=== PATIENT | female | born 1980 | race Caucasian/White ===

== ENCOUNTER → 2021-12-04 15:42 | Outpatient (CLI) | payer OTHER, SELFPAY ==
[2021-12-04 18:46] LABS: COVID19 -Nasal RAPID Negative (Negative)
== END ==
PROVIDERS: Visit Provider Family Medicine Sleep Medicine
DX: Z20.822 Contact with and (suspected) exposure to COVID-19 (principal)
CPT/HCPCS: 87635; C9803

== ENCOUNTER 2021-12-06 07:14 | Day surgery (SDC) | payer OTHER, SELFPAY ==
[2021-12-05 07:59] VITALS: BMI 22.8
[2021-12-06] VITALS (12 sets, daily range): BP systolic 110–130; BP diastolic 60–91; PULSE 57–99; RESP 12–17; TEMP 36.6–37; O2SAT 90–100; BMI 22.8
[2021-12-06] MEDS: LACTATED RINGERS 1,000 ML 42 ML IV (08:18)
[2021-12-06] MEDS: ACETAMINOPHEN 325 MG TABLET 975 MG PO (08:18)
--- NOTE | 2021-12-06 08:29 | PM.PREOP ---
Pre-operative Note COVID-19 COVID-19 status: Negative Result date/Date tested (Pos, Neg/Pending): 12/04/21 Interval Note History & Physical reviewed/Exam performed by Physician: Yes Changes to H&P: Yes
[2021-12-06] MEDS: CELECOXIB 200 MG CAPSULE PO (08:34)
--- NOTE | 2021-12-06 08:51 | SUR.PREOP ---
Block start time [0841] . Monitoring initiated and maintained throughout procedure. Medication given by anesthesiologist. Patient remained stable throughout procedure, no adverse reactions noted. Block end time [0847].
[2021-12-06] MEDS: CEFAZOLIN 2 GM/20 ML SYRINGE IV (09:00)
--- NOTE | 2021-12-06 09:34 | SUR.OPER ---
Supine on padded OR bed, head on pillow, arms secured on padded arm boards at <90 degrees abduction, legs uncrossed, left leg draped into surgical field, hindged knee post on left side of bed, safety belt at abdomen. Directed and approved by surgical attending
[2021-12-06] MEDS: BUPIVACAINE 0.5% (PF) VIAL 30 ML INJ (10:16)
--- NOTE | 2021-12-06 10:56 | P.OP_ITS ---
Operative Date/Time/Diagnoses Date of procedure: 12/06/21 Time of procedure: 10:56 Pre-op diagnosis: Left knee anterior cruciate ligament rupture Post-op diagnosis: same Procedure & Clinicians Procedure: Left anterior cruciate ligament reconstruction with quadriceps autograft Same procedure as scheduled: Yes Indications: The patient is a 41-year-old active woman who injured her left knee while skiing. She has had symptoms of instability and her MRI has revealed an ACL rupture. We have discussed both operative and non operative treatment methods. She has elected to proceed with ACL reconstruction after discussion the risks benefits and alternatives. A quadriceps autograft was chosen due to her short stature. Risks discussed included but were not limited to: Failure to improve, stiffness, infection, nerve damage, deep venous thrombosis, pulmonary embolism, stroke, myocardial infarction, permanent paralysis, aspiration pneumonia and . Surgeon: Gian Curiel Plant Nursery Worker: Tiffanie Capone Yes if Unassisted: No Anesthesia Type: General, Peripheral nerve block and Local Operative Notes Findings: 1. Normal suprapatellar pouch 2. 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 Medial and lateral gutters normal 4. Medial compartment notable for intact cartilage and normal-appearing meniscus 5. Intercondylar notch notable for complete rupture of the anterior cruciate ligament off its femoral insertion and intact PCL. 6. Lateral compartment notable for grade 1 chondromalacia of the tibial plateau with softening and normal-appearing meniscus. 7. Normal posterolateral compartment 8. Normal posteromedial compartment. Closure Type: primary Specimen(s): none sent Prosthetic devices, grafts, tissues, transplants, or devices: Implants used in this procedure included tibial and femoral tight ropes for the quadriceps graft and a 14 mm tibial tight rope titanium button, these were manufactured by [employer]. In addition a backup fixation for the tibia of a 4.5 mm cortical Synthe[employer] large fragment screw with a washer was placed. Applied: implant(s) Estimated Blood Loss (mL): 50 Blood products transfused: none Tourniquet time (min): 53 Procedure in detail: The patient is seen in the preoperative area where she identified the left knee as the operative site. This was marked with my initials. She underwent the induction of an abductor canal block and then was taken to the operating room and placed on the operating room table in a supine position where she underwent induction with general anesthetic. Following adequate general anesthesia her knee was examined under anesthesia and a tourniquet placed around the proximal left thigh. The left leg was prepared from the toes to the tourniquet with ChloraPrep in the usual fashion and draped through sterile drapes. A superior medial portal was created for the outflow cannula and this was used to insufflate the knee with saline. A lateral portal was created for the arthroscope. Diagnostic arthroscopy ensued with the result given above. During diagnostic arthroscopy, a medial portal was created for the probe and other tools. At this point the arthroscope was temporarily withdrawn from the knee and the knee was elevated and exsanguinated with an Esmarch bandage and the tourniquet inflated to 250 mmHg. An approximately 7 cm incision was created above the patella in the midline and the central 9 mm of quadriceps tendon was harvested for a 9 mm wide by 7.5 cm long graft. This was taken to the back table for preparation into a graft by my financial planning assistant. I return to the operative field to close the defect in the quadriceps with a running 0 Vicryl suture. The arthroscope was then reinserted into the knee and the intercondylar notch debrided. The arthroscope was then placed in the medial portal and the [employer] FlipCutter device placed through the lateral portal to drill a retrograde socket in the femur. This was placed in the center of the ACL footprint. A passing suture was placed and brought out through the lateral portal. The arthroscope was then repositioned in the lateral portal and the tibial tunnel drilled over a guide pin in the center of the tibial footprint. Both tunnels were 10 mm in diameter. The passing suture was brought out through the tibial tunnel. The graft was then advanced through the tibial tunnel into the femoral socket. The femoral tight rope device deployed without difficulty. Fixation was confirmed by placing strong traction on the graft. The tight rope device was then used to deliver the graft into the femoral socket. The tibial button was then placed and the graft maximally tightened over the button. There appeared to be some ?play? in the button after tightening so I elected to back this up with a post fixation using a large fragment cortical screw and washer just distal to the tibial tunnel. The sutures from the graft were tied over the button and then brought down around the post and tied around the post as well. This provided good fixation and eliminated the Lalo's maneuver. The tourniquet was deflated for a total tourniquet time of 53 minutes. The graft harvest wound was closed with interrupted 3-0 Vicryl and a running 4-0 Monocryl. The portal sites were closed with 4-0 Monocryl. The tibial tunnel site was closed with interrupted 3-0 Vicryl and 4-0 Monocryl. Steri-Strips were applied. Local anesthetic was injected into the knee for postoperative pain control. Dressings of sterile 4x4s, sterile cast padding and an Erwin wrap were applied. The patient was then transported to the recovery room in good condition having tolerated the procedure well. Complications: none Post-operative Condition: stable Disposition: PACU Plan for aftercare: The patient will be maintained on a standard arthroscopic ACL reconstruction protocol. She will be allowed to weight bear as tolerated once she has had the block wear off and has been able to reestablish good quadriceps control. She will use crutches until then. She will be discharged later today. Prescriptions for oxycodone and Vistaril have been called into her pharmacy. Follow-up will be in my office in 2 weeks.
[2021-12-06] MEDS: fentaNYL 100 MCG/2 ML INJ IV ×3 (11:01→11:21)
[2021-12-06] MEDS: OXYCODONE IR 5 MG TABLET PO ×2 (11:12→12:18)
[2021-12-06] MEDS: hydrOXYzine pamoate 25 MG CAPSULE PO (11:13)
[2021-12-06] MEDS: MEPERIDINE 50 MG/ML INJ 25 MG IV (11:26)
--- NOTE | 2021-12-06 13:45 | SUR.PHASEII ---
12/[id number] report and patient . vss. csm good to left knee/foot. moving actively. wide awake and alert. denies feeling any tingling/numbness in left leg. Pt had abducter block this am. second pain pill given per request. 1230-Home instructions completed with patient. verbalized understanding. feels ready for discharge. vss. 1245-dressed. oob in w/chair. no changes with status. taking po fluids well. 1250-Escorted to car by w/chair with all belongings. dressing cdi to knee. to pick up attendant RX on way home.
--- NOTE | 2021-12-06 15:20 | SUR.PHASEII ---
12/06/21 1515-patient called in c/o difficulty with getting RX filled. Dr Curiel in OR, unable to address issue. GRISEL Kline here and addressed issue. new Rx ordered,cancelled prior RX for Oxycodone. Pharmacy called and will barrientos order to fill. patient called back and updated, RX to be ready by 1630 for pickup.
== END 2021-12-06 12:50 | disposition home or self-care (01) ==
PROVIDERS: PCP Acupuncturist; Referring Provider Orthopaedic Surgery; Visit Provider Orthopaedic Surgery
PROC: (CPT 29888; principal; 2021-12-06 08:45)
DX: S83.512A Sprain of anterior cruciate ligament of left knee, initial encounter (principal); Y93.23 Activity, snow (alpine) (downhill) skiing, snowboarding, sledding, tobogganing and snow tubing; W17.81XA Fall down embankment (hill), initial encounter; Y92.838 Other recreation area as the place of occurrence of the external cause
CPT/HCPCS: 27427; 64450; 81025; J0690; J2175; J2250; J2704; J3010

== ENCOUNTER → 2023-10-23 13:55 | Outpatient (CLI) | payer OTHER, SELFPAY ==
--- NOTE | 2023-10-23 13:57 | DI.RAD.S_ITS ---
PROCEDURE: XR LUMBAR SPINE MIN 4V INDICATIONS: LEG PAIN TECHNIQUE: 5 views of the lumbar spine were acquired, including bilateral oblique views. COMPARISON: None. FINDINGS: Bones: 5 nonrib-bearing vertebrae are present. There is normal bony alignment. No acute vertebral body compression fractures. No suspicious bony lesions. Multilevel spondylosis of the lumbar spine with associated facet arthropathy most pronounced at L4-5 and L5-S1. Soft tissues: Overlying bowel gas pattern is normal. No suspicious soft tissue calcifications. Oblique images: No pars defects. IMPRESSION: No acute bony abnormality. Multilevel spondylosis most pronounced at L4-5 and L5-S1. Dictated by: Wyatt Swift M.D. on 10/23/2023 at 14:55 Approved by: Wyatt Swift M.D. on 10/23/2023 at 14:57
== END ==
PROVIDERS: PCP Acupuncturist; Referring Provider Physical Medicine & Rehabilitation; Visit Provider Physical Medicine & Rehabilitation
DX: M47.816 Spondylosis without myelopathy or radiculopathy, lumbar region (principal); M47.817 Spondylosis without myelopathy or radiculopathy, lumbosacral region; M79.606 Pain in leg, unspecified
CPT/HCPCS: 72110

== ENCOUNTER 2024-01-30 13:06 | Outpatient (CLI) | payer OTHER, SELFPAY ==
[2024-01-30] VITALS (8 sets, daily range): BP systolic 106–137; BP diastolic 61–87; PULSE 55–64; RESP 10–16; O2SAT 95–100
--- NOTE | 2024-01-30 14:00 | DI.RAD.S_ITS ---
PROCEDURE: PAIN L/S TRANSFORAMINAL INJECT INDICATIONS: Right L4-5 transforaminal MOISES COMPARISON: None. FINDINGS: Fluoroscopic spot filming was performed to verify placement of spinal needle at the right L4-5 level, as labeled on the films. Appropriate location of the needle tip was confirmed by injection of iodinated contrast. IMPRESSION: Intraprocedural examination demonstrates appropriate needle positioning. Approved by: Stevie Llamas M.D. on 01/30/2024 at 21:48
[2024-01-30] MEDS: MIDAZOLAM 2 MG/2 ML VIAL IV (14:38)
[2024-01-30] MEDS: iopamidoL 15 ML VIAL 3 ML INJ (14:45)
[2024-01-30] MEDS: BETAMETHASONE 30 MG/5 ML MDV 12 MG INJ (14:45)
[2024-01-30] MEDS: DEXAMETHASONE 10 MG/ML VIAL 20 MG INJ (14:45)
[2024-01-30] MEDS: BUPIVACAINE 0.25% (PF) VIAL 2 ML INJ (14:45)
--- NOTE | 2024-01-30 14:57 | P.PCN_ITS ---
Date/Time/Diagnoses Date of procedure: 01/30/24 Time of procedure: 14:57 Pre-procedure diagnosis: 1. FORAMINAL STENOSIS WITH LE SYMPTOMS Post-procedure diagnosis: same Procedure Notes Procedure: 1. FLUOROSCOPICALLY GUIDED CONTRAST CONTROLLED TRANSFORAMINAL EPIDURAL STEROID INJECTION - RIGHT L4/5 TFESI Indications: Lyly is referred by Dr. Cantor for treatment of Foraminal Stenosis with Right LE Symptoms Physician: Christian Begum Total Fluoroscopy time (seconds): 8 Total sedation minutes: 13 Complications: none Procedure in detail & Post-procedure care: FINDINGS Foraminal Nerve Root Compression secondary to disc disease and facet hypertrophy DESCRIPTION OF PROCEDURE Following review of allergy and review of potential side effects and complications, including, but not necessarily limited to, infection, allergic reaction, local tissue breakdown, stroke, temporary or permanent nerve injury, paralysis, and possible , the patient indicated that the patient understood and agreed to proceed. An informed consent document was signed by the patient, witnessed by a nurse, and placed in the patient's chart. Additionally, other treatment options including medications, modalities, and physical therapy were reviewed with the patient. After review of previous anaesthesic history and IV conscious sedation the patient was deemed safe to proceed with today?s procedure with IV conscious sedation as ASA class II designation. Safety time-out was performed to confirm patient ID, procedure to be performed and site of procedure. IV sedation was accomplished with a combination of 2mg of Versed was administered by the RN after DO order, titrated to patient comfort during the course of the procedure while the patient remained responsive to all verbal commands In the prone position following sterile prep and drape of the lumbar region, the right L4/5 posterior neuroforamen was identified fluoroscopically. The skin was anesthetized via a 25-gauge 1.5-inch needle with 1% lidocaine solution. At this point, a 25-gauge 3.5-inch spinal needle was atraumatically introduced and advanced under fluoroscopic guidance through the posterior right L4/5 neuroforamen to approximately the anterior aspect of the canal. Depth was confirmed on lateral view. Following negative aspiration, injection of approximately 1.5cc of Isovue 200 under live fluoroscopy in the AP view co nfirmed excellent flow along the nerve root, into the epidural space without vascular or intrathecal uptake observed Radiological data, including multiple fluoroscopic views of the lumbosacral spin e, reveal a spinal needle at the right L4/5 posterior neuroforamen. Subsequent views show flow of contrast material flowing superiorly and inferiorly along the nerve root confirming epidural flow. Subsequently, a test dose of 1.5 cc of 1% lidocaine solution was administered and patient was observed for two minutes for signs or symptoms of complications, including abdominal pain, shortness of breath, bilateral upper or lower extremity weakness, nausea and vomiting, prior to steroid injection. At this point, a total of 2cc or 10mg of dexamethasone and 6mg of betamethasone was injected without incident. The procedure tolerated the procedure well without signs or symptoms of complications prior to transfer to the recovery area continued monitoring without incident. The patient was then transferred to the recovery area where they were observed for an appropriate time after the injection. The patient reported a VAS score of 7 prior to the procedure and a post- procedure VAS of 0. POST OP INSTRUCTIONS The patient was provided a Pain Log to continue to record their response to the target-specific procedure prior to follow-up visit with their referring physician. Additionally, specific post-injection care instructions and a contact number to our office were provided if concerns arise regarding possible complications associated with the procedure are suspected.
== END 2024-01-30 15:15 | disposition home or self-care (01) ==
LOC: RAD 13:06
PROVIDERS: PCP Acupuncturist; Referring Provider Physical Medicine & Rehabilitation; Visit Provider Physical Medicine & Rehabilitation
DX: M48.061 Spinal stenosis, lumbar region without neurogenic claudication (principal); M51.16 Intervertebral disc disorders with radiculopathy, lumbar region; M47.26 Other spondylosis with radiculopathy, lumbar region
CPT/HCPCS: 64483; 99152; J0702; J1100; J2250; J3490

== ENCOUNTER 2024-05-07 07:24 | Outpatient (CLI) | payer OTHER, SELFPAY ==
[2024-05-07] VITALS (9 sets, daily range): BP systolic 111–140; BP diastolic 62–77; PULSE 53–67; RESP 8–19; TEMP 36.2–36.3; O2SAT 98–100
--- NOTE | 2024-05-07 08:00 | DI.RAD.S_ITS ---
PROCEDURE: PAIN L/S TRANSFORAMINAL INJECT INDICATIONS: Right L5/S1 and L4/5 TFESI COMPARISON: [facility], , PAIN L/S TRANSFORAMINAL INJECT, 01/30/2024, 14:44. FINDINGS: Fluoroscopic spot filming was performed to verify placement of spinal needles at the L4-5 and L5-S1 levels, as labeled on the films. Appropriate locations of the needle tips were confirmed by injection of iodinated contrast. IMPRESSION: Intraprocedural examination demonstrates appropriate needle positioning. Approved by: Stevie Llamas M.D. on 05/07/2024 at 21:11
[2024-05-07] MEDS: MIDAZOLAM 2 MG/2 ML VIAL IV (08:25)
[2024-05-07] MEDS: BUPIVACAINE 0.25% (PF) VIAL 2 ML INJ (08:36)
[2024-05-07] MEDS: iopamidoL 15 ML VIAL 3 ML INJ (08:37)
[2024-05-07] MEDS: DEXAMETHASONE 10 MG/ML VIAL 20 MG INJ (08:37)
[2024-05-07] MEDS: methylPREDNISolone acetate 80 MG/ML VIAL INJ (08:38)
--- NOTE | 2024-05-07 08:45 | P.PCN_ITS ---
Date/Time/Diagnoses Date of procedure: 05/07/24 Time of procedure: 08:45 Pre-procedure diagnosis: 1. FORAMINAL STENOSIS WITH LE SYMPTOMS Post-procedure diagnosis: same Procedure Notes Procedure: 1. FLUOROSCOPICALLY GUIDED CONTRAST CONTROLLED TRANSFORAMINAL EPIDURAL STEROID INJECTION - RIGHT L4/5 TFESI Indications: Lyly is referred by Dr. Cantor for treatment of Foraminal Stenosis with Right LE Symptoms Physician: Christian Begum Total Fluoroscopy time (seconds): 11 Total sedation minutes: 16 Complications: none Procedure in detail & Post-procedure care: FINDINGS Foraminal Nerve Root Compression secondary to disc disease and facet hypertrophy DESCRIPTION OF PROCEDURE Following review of allergy and review of potential side effects and complications, including, but not necessarily limited to, infection, allergic reaction, local tissue breakdown, stroke, temporary or permanent nerve injury, paralysis, and possible , the patient indicated that the patient understood and agreed to proceed. An informed consent document was signed by the patient, witnessed by a nurse, and placed in the patient's chart. Additionally, other treatment options including medications, modalities, and physical therapy were reviewed with the patient. After review of previous anaesthesic history and IV conscious sedation the patient was deemed safe to proceed with today?s procedure with IV conscious sedation as ASA class II designation. Safety time-out was performed to confirm patient ID, procedure to be performed and site of procedure. IV sedation was accomplished with a combination of 2mg of Versed was administered by the RN after DO order, titrated to patient comfort during the course of the procedure while the patient remained responsive to all verbal commands In the prone position following sterile prep and drape of the lumbar region, the right L4/5 posterior neuroforamen was identified fluoroscopically. The skin was anesthetized via a 25-gauge 1.5-inch needle with 1% lidocaine solution. At this point, a 25-gauge 3.5-inch spinal needle was atraumatically introduced and advanced under fluoroscopic guidance through the posterior right L4/5 neuroforamen to approximately the anterior aspect of the canal. Depth was confirmed on lateral view. Following negative aspiration, injection of approximately 1.5cc of Isovue 200 under live fluoroscopy in the AP view c onfirmed excellent flow along the nerve root, into the epidural space without vascular or intrathecal uptake observed Radiological data, including multiple fluoroscopic views of the lumbosacral spi ne, reveal a spinal needle at the right L4/5 posterior neuroforamen. Subsequent views show flow of contrast material flowing superiorly and inferiorly along the nerve root confirming epidural flow. Subsequently, a test dose of 1.5 cc of 1% lidocaine solution was administered and patient was observed for two minutes for signs or symptoms of complications, including abdominal pain, shortness of breath, bilateral upper or lower extremity weakness, nausea and vomiting, prior to steroid injection. At this point, a total of 2cc or 10mg of dexamethasone and 40mg of depo medrol was injected without incident. The procedure tolerated the procedure well without signs or symptoms of complications prior to transfer to the recovery area continued monitoring without incident. The patient was then transferred to the recovery area where they were observed for an appropriate time after the injection. The patient reported a VAS score of 7 prior to the procedure and a post- procedure VAS of 1. POST OP INSTRUCTIONS The patient was provided a Pain Log to continue to record their response to the target-specific procedure prior to follow-up visit with their referring physician. Additionally, specific post-injection care instructions and a contact number to our office were provided if concerns arise regarding possible complications associated with the procedure are suspected.
--- NOTE | 2024-05-07 08:46 | P.PCN_ITS ---
Date/Time/Diagnoses Date of procedure: 05/07/24 Time of procedure: 08:46 Pre-procedure diagnosis: FORAMINAL STENOSIS WITH LE SYMPTOMS Post-procedure diagnosis: same Procedure Notes Procedure: 1. FLUOROSCOPICALLY GUIDED CONTRAST CONTROLLED TRANSFORAMINAL EPIDURAL STEROID INJECTION - RIGHT L5/S1 TFESI Indications: Lyly is referred by Dr. Cantor for treatment of Foraminal Stenosis with Right LE Symptoms Physician: Christian Begum Total Fluoroscopy time (seconds): 11 Total sedation minutes: 16 Complications: none Procedure in detail & Post-procedure care: FINDINGS Foraminal Nerve Root Compression secondary to disc disease and facet hypertrophy DESCRIPTION OF PROCEDURE Following review of allergy and review of potential side effects and complications, including, but not necessarily limited to, infection, allergic r eaction, local tissue breakdown, stroke, temporary or permanent nerve injury, paralysis, and possible , the patient indicated that the patient understood and agreed to proceed. An informed consent document was signed by the patient, witnessed by a nurse, and placed in the patient's chart. Additionally, other treatment options including medications, modalities, and physical therapy were reviewed with the patient. After review of previous anaesthesic history and IV conscious sedation the patient was deemed safe to proceed with today?s procedure with IV conscious sedation as ASA class II designation. Safety time-out was performed to confirm patient ID, procedure to be performed and site of procedure. IV sedation was accomplished with a combination of 2mg of Versed was administered by the RN after DO order, titrated to patient comfort during the course of the procedure while the patient remained responsive to all verbal commands In the prone position following sterile prep and drape of the lumbar region, the right L5/S1 posterior neuroforamen was identified fluoroscopically. The skin was anesthetized via a 25-gauge 1.5-inch needle with 1% lidocaine solution. At this point, a 25-gauge 3.5-inch spinal needle was atraumatically introduced and advanced under fluoroscopic guidance through the posterior right L5/S1 neuroforamen to approximately the anterior aspect of the canal. Depth was confirmed on lateral view. Following negative aspiration, injection of approximately 1.5cc of Isovue 200 under live fluoroscopy in the AP view confirmed excellent flow along the nerve root, into the epidural space without vascular or intrathecal uptake observed Radiological data, including multiple fluoroscopic views of the lumbosacral spine, reveal a spinal needle at the right L5/S1 posterior neuroforamen. Subsequent views show flow of contrast material flowing superiorly and inferiorly along the nerve root confirming epidural flow. Subsequently, a test dose of 1.5 cc of 1% lidocaine solution was administered and patient was observed for two minutes for signs or symptoms of complications, including abdominal pain, shortness of breath, bilateral upper or lower extre mity weakness, nausea and vomiting, prior to steroid injection. At this point, a total of 2cc or 10mg of dexamethasone and 40mg depo medrol was injected without incident. The procedure tolerated the procedure well without signs or symptoms of complications prior to transfer to the recovery area continued monitoring without incident. The patient was then transferred to the recovery area where t hey were observed for an appropriate time after the injection. The patient reported a VAS score of 7 prior to the procedure and a post- procedure VAS of 1. POST OP INSTRUCTIONS The patient was provided a Pain Log to continue to record their response to the target-specific procedure prior to follow-up visit with their referring physician. Additionally, specific post-injection care instructions and a contact number to our office were provided if concerns arise regarding possible complications associated with the procedure are suspected.
== END 2024-05-07 09:05 | disposition home or self-care (01) ==
LOC: RAD 07:25
PROVIDERS: PCP Acupuncturist; Referring Provider Physical Medicine & Rehabilitation; Visit Provider Physical Medicine & Rehabilitation
DX: M48.061 Spinal stenosis, lumbar region without neurogenic claudication (principal); M48.07 Spinal stenosis, lumbosacral region; M51.16 Intervertebral disc disorders with radiculopathy, lumbar region; M51.17 Intervertebral disc disorders with radiculopathy, lumbosacral region; M47.26 Other spondylosis with radiculopathy, lumbar region; M47.27 Other spondylosis with radiculopathy, lumbosacral region
CPT/HCPCS: 64483; 64484; 99152; J1010; J1100; J2250; J3490